=== PATIENT | female | born 1980 | race Caucasian/White ===

== ENCOUNTER 2023-07-06 10:43 | Outpatient (CLI) | payer BC, SELFPAY ==
[2023-07-06 19:54] LABS: Free T4 Free Thyroxine 0.95 ng/mL (0.78-2.19)
== END 2023-07-06 10:44 | disposition home or self-care (01) ==
LOC: ANHGOSHLAB 10:44
PROVIDERS: PCP Family Medicine; Visit Provider Family Medicine
DX: E03.9 Hypothyroidism, unspecified (principal)
CPT/HCPCS: 36415; 84439; 84443